=== PATIENT | female | born 1930 | race African-American/Black ===

== ENCOUNTER 2016-07-20 19:58 | Inpatient (IN) | payer OTHER ==
[~2016-07-20] VITALS: Ht 154.9 cm; Wt 50.8 kg
[~2016-07-20 19:58] MED LIST: DILT240C54 PO; GABA-531 PO; LISI5TAB PO; OMEP-130 PO; TRAM50TA2 PO
[2016-07-20 20:00] VITALS: BP 133/64; PULSE 101; RESP 16; TEMP 98.9; O2SAT 94
--- NOTE | 2016-07-20 20:05 | NUR ---
Pt gowned up and placed in bed 5 for evaluation
--- NOTE | 2016-07-20 20:53 | NUR ---
Latrice waldron in [facility] - 07/21/16 at 0200 by [email or web address] at bedside examining pt
--- NOTE | 2016-07-20 20:55 | NUR ---
at bedside examining pt
--- NOTE | 2016-07-20 21:00 | NUR ---
Pt brought to ED via ambulance with c/o bilateral hip, lower back pain 4/10, aggravated with movement. pt stated that she tripped and fell in the abthroom yesterday's evening, was able to get up using the cane. This morning, pt said that her legs felt weak and she could not stand up. BLE sensation intatc, pedal pulses present. Pt A&Ox4, denies SOB or chestpain , denies N/V/D, no bruise or skin opening noted. will continue to monitor
[2016-07-20 21:32] LABS: EOSINOPHILS # (AUTO) 0.1 K/uL (0.0-0.4); LYMPHOCYTES # (AUTO) 1.8 K/uL (1.0-5.5); MEAN CORPUSCULAR HGB CONC 32 % (32-36); RED CELL DISTRIBUTION WIDTH 13.3 % (9.0-15.0); WHITE BLOOD COUNT (AUTO) 7.5 K/uL (4.8-10.8)
[2016-07-20 21:34] LABS: ANION GAP 3 (5-15); CALCIUM 9.1 mg/dL (8.4-11.0); CHLORIDE 104 mmol/L (98-107); CREATININE 1.39 mg/dL (0.55-1.30); GLUCOSE 132 mg/dL (70-99); POTASSIUM 4.4 mmol/L (3.5-5.1); SODIUM SERUM 142 mmol/L (136-145); UREA NITROGEN, BLOOD 28 mg/dL (8-21)
[2016-07-20 21:35] LABS: BASOPHILS # (AUTO) 0.1 K/uL (0.0-0.2); BASOPHILS % (AUTO) 1.9 % (0.0-2.0); EOSINOPHILS % (AUTO) 0.8 % (0.0-4.0); HEMATOCRIT 35.7 % (36-48); HEMOGLOBIN 11.4 g/dL (12.0-16.0); LYMPHOCYTES % (AUTO) 24.5 % (20.5-51.5); MEAN CORPUSCULAR HEMOGLOBIN 27 pg (27-31); MEAN CORPUSCULAR VOLUME 83 fL (79.0-98.0); MONOCYTES # (AUTO) 0.7 K/uL (0.0-1.0); MONOCYTES % (AUTO) 9.5 % (1.7-9.3); NEUTROPHILS # (AUTO) 4.8 K/uL (1.8-7.7); NEUTROPHILS % (AUTO) 63.3 % (40.0-70.0); PLATELET COUNT (AUTO) 168 K/uL (130-430); RED BLOOD CELL COUNT(AUTO) 4.32 MIL/uL (4.2-6.2)
[2016-07-20 21:37] LABS: INR 0.9 (0.8-1.2); PROTHROMBIN TIME 10.3 SECS (9.5-12.5)
[2016-07-20 21:38] LABS: ALANINE AMINOTRANSFERASE 16 U/L (12-78); ALBUMIN 3.1 g/dL (3.4-4.8); ASPARTATE AMINOTRANSFERASE 56 U/L (10-37); TOTAL BILIRUBIN 0.4 mg/dL (0.0-1.0); TOTAL PROTEIN, SERUM 7.1 g/dL (6.4-8.3)
--- NOTE | 2016-07-20 22:00 | NUR ---
Son at bedside, pt denies distress.
[2016-07-20] MEDS ORDERED: MORPHINE 2 MG/ML INJ. SYRINGE IVP ONE (23:00)
[2016-07-20 23:09] LABS: BILIRUBIN,URINE NEGATIVE (NEGATIVE); BLOOD, URINE NEGATIVE (NEGATIVE); CLARITY/URINE CLEAR (CLEAR); COLOR,URINE YELLOW (YELLOW); GLUCOSE,URINE NEGATIVE (NEGATIVE); KETONES,URINE NEGATIVE (NEGATIVE); LEUKOCYTE ESTERASE ,URINE NEGATIVE (NEGATIVE); NITRITE, URINE NEGATIVE (NEGATIVE); PH,URINE 6.5 (5.0-8.0); PROTEIN URINE 1+ (NEGATIVE); UROBILINOGEN,URINE 0.2 (0.2-1.0)
[2016-07-20 23:15] LABS: BACTERIA,URINE FEW /HPF (None Seen); MUCUS,URINE None Seen /LPF (None Seen); RBC,URINE 0-3 /HPF (0-3); URINE AMORPHOUS URATE 1+ /HPF (None Seen); WBC,URINE 0-3 /HPF (0-3)
--- NOTE | 2016-07-20 23:15 | NUR ---
Pt stated her pain is controlled after receiving morphine, VSS, pt in comfortable position
[2016-07-21] VITALS (8 sets, daily range): BP systolic 104–151; BP diastolic 52–82; PULSE 94–100; RESP 16–20; TEMP 98–99.2; O2SAT 88–99
--- NOTE | 2016-07-21 00:05 | NUR ---
Pt in bed appeared resting comfortably
--- NOTE | 2016-07-21 00:59 | NUR ---
ADMISSION NOTE Received patient from ER via [facility], received report from JAMES HENRY. Patient admitted with diagnosis of LOW BACK PAIN. Patient oriented to hospital routine, call light, toileting and safety-patient verbalized understanding.
[2016-07-21] MEDS ORDERED: MORPHINE 2 MG/ML INJ. SYRINGE IVP PRN ×2 (01:00→05:15)
--- NOTE | 2016-07-21 01:00 | NUR ---
Patient will be admitted to care of . Admitted to med-surg unit. Will go to room 105B. Belongings list completed. Summary report printed. Report given to kat villalobos
--- NOTE | 2016-07-21 01:30 | NUR ---
Initial Notes Patient resting in bed, awake, alert, oriented. Patient denies any acute distress. Patient reports some low back pain but states she was medicated in ER and it helps, does not want additional pain medication at this time. Breathing even and unlabored on room air. Vital signs stable. IV site patent/clean/dry. Educated patient on use of call light for assistance and fall precautions, patient verbalized understanding. Needs addressed, call light in hand. Will continue to monitor for changes and safety. Addendum: 07/21/16 at 0158 by Zuhair Valle RN Skin intact. Skin color discoloration noted around patient's rectum.
--- NOTE | 2016-07-21 04:00 | NUR ---
Rounds Patient resting in bed with eyes closed, easily aroused. Patient denies any distress, pain, or needs at this time. Call light in hand, fall precautions in place. Will continue to monitor.
[2016-07-21] MEDS ORDERED: MORPHINE 4 MG/ML INJ. SYRINGE IVP PRN (05:15)
--- NOTE | 2016-07-21 06:24 | NUR ---
Closing Notes Patient resting in bed with eyes closed, easily aroused to name. Patient denies any acute distress or pain at this time. Breathing even and unlabored. IV site patent/clean/dry, no S/S infection/infiltration noted. Needs addressed throughout shift. Call light in hand, fall precautions in place. Will continue to monitor for changes and safety, and endorse all patient care/needs to oncoming nurse.
--- NOTE | 2016-07-21 07:18 | NUR ---
Handoff report at patient bedside. Resting at this time. Chief complaint is mechanical fall in home with negative CT L-spine.
--- NOTE | 2016-07-21 09:00 | NUR ---
DOCTOR JANDIAL ROUNDS TO PATIENT. RECHECK OF OXYGEN SATURATION. PATIENT HAD ACRYLIC NAILS. ADJUSTED OXYGEN SATURATION MONITOR TO NON AFFECTED SITE.
[2016-07-21] MEDS: GABAPENTIN 300 MG CAPSULE PO SCH ×3 (09:34→21:50)
[2016-07-21] MEDS: DILTIAZEM HCL 240 MG CAP.SR.24H PO SCH (09:36)
--- NOTE | 2016-07-21 10:25 | NUR ---
CONSULTATION CALLED: REASON FOR CONSULTATION: LOWER BACK PAIN WAS CONSULT CALLED: YES PERSON WHO WAS NOTIFIED: [facility] PH[facility]ICIAN: ANTONIA LAMB
[2016-07-21 10:47] LABS: ANION GAP 3 (5-15); CALCIUM 9.4 mg/dL (8.4-11.0); CHLORIDE 104 mmol/L (98-107); CREATININE 0.98 mg/dL (0.55-1.30); GLUCOSE 104 mg/dL (70-99); POTASSIUM 3.8 mmol/L (3.5-5.1); SODIUM SERUM 146 mmol/L (136-145); UREA NITROGEN, BLOOD 18 mg/dL (8-21)
[2016-07-21 10:54] LABS: CREATINE KINASE, TOTAL 430 U/L (26-192)
[2016-07-21] MEDS ORDERED: OMEPRAZOLE 20 MG CAPSULE.DR (PriLOSEC) PO ONE (11:00)
--- NOTE | 2016-07-21 11:00 | NUR ---
ROUNDS TO PATIENT. NEEDS MET AT THIS TIME.
[2016-07-21 11:16] LABS: CKMB RELATIVE INDEX 0.1 (0.0-2.9); CREATINE KINASE MB 0.3 ng/mL (0-3.6)
--- NOTE | 2016-07-21 12:23 | NUR ---
HCP/PA: Called [facility] made her aware of discharge to SNF. Kirstin stated [facility] accepted assigned to room 207A RN to report . [facility] ambulance transport on will call.
--- NOTE | 2016-07-21 13:00 | NUR ---
COMPLETION OF MRI AT THIS TIME. NEEDS MET. SAYS SHE WANTS TO CHANGE BRIEF. HAS ORDERS FOR FURTHER TRANSFER PENDING RESULTS OF MRI AND CLEARANCE. NOTIFIED [facility] DIRECTOR OF PATIENT REQUEST TO CHANGE.
--- NOTE | 2016-07-21 15:00 | NUR ---
ROUNDS TO PATIENT. NEEDS MET AT THIS TIME.
--- NOTE | 2016-07-21 17:09 | NUR ---
NOTED CARE AMBULANCE NOTIFICATION. WILL PREPARE DISCHARGE AND REPORT.
--- NOTE | 2016-07-21 17:49 | NUR ---
CALLED REPORT TO [facility]. REQUESTED CLEARANCE FROM DOCTOR ADONIS. LEFT MESSAGE WITH ANSWERING SERVICE.
--- NOTE | 2016-07-21 19:33 | NUR ---
Handoff report to noc nurse. Patient is a hold for discharge at this time by Doctor
--- NOTE | 2016-07-21 20:00 | NUR ---
initial nursing notes: Patient is awake. Patient eating dinner. Patient demonstrate proper use of call light. Per Dr. Gallegos, patient cannot be transferred at this time due to BLE weakness.
--- NOTE | 2016-07-21 21:43 | NUR ---
Came back fromCT: Patient had just come back from brain CT without contrast.
[2016-07-21] MEDS: OMEPRAZOLE 20 MG CAPSULE.DR (PriLOSEC) PO SCH (21:52)
--- NOTE | 2016-07-21 23:40 | NUR ---
nursing rounds: Patient is asleep in bed. No shortness of breath noted.
[2016-07-22 00:57] VITALS: BP 162/91; PULSE 98; RESP 17; TEMP 96.7; O2SAT 98
--- NOTE | 2016-07-22 01:40 | NUR ---
nursing rounds: Patient calmly resting in bed. No respiratory distress noted.
--- NOTE | 2016-07-22 03:40 | NUR ---
nursing rounds: Patient is asleep in bed. Patient has no shortness of breath.
[2016-07-22 04:00] VITALS: BP 138/68; PULSE 64; RESP 16; TEMP 98.6; O2SAT 98
--- NOTE | 2016-07-22 05:40 | NUR ---
nursing rounds: Patient is awake. Patient's bed linen were changed. Patient denies of having pain.
--- NOTE | 2016-07-22 07:27 | NUR ---
closing nursing notes: Patient is resting in bed. Patient is awake, alert and oriented X 4. Patient is in no acute respiratory distress. No episodes of fall and no injuries throughout the rn shift mgr. Provided nursing report to incoming morning shift nurse, CARL Walls, at patient's bedside.
[2016-07-22 08:05] VITALS: BP 153/84; PULSE 95; RESP 16; TEMP 97
--- NOTE | 2016-07-22 09:02 | NUR ---
[facility] nurse unit says 207A is occupied. Call back after 10am for admission coordinator.
--- NOTE | 2016-07-22 09:23 | NUR ---
Nutrition Update Randall Scale 18 noted. Pt admitted for lower back pain. Diet: regular BMI: 21.2 kg/m2 RD to follow per nutrition care standards.
[2016-07-22] MEDS: GABAPENTIN 300 MG CAPSULE PO SCH (09:25)
[2016-07-22] MEDS: OMEPRAZOLE 20 MG CAPSULE.DR (PriLOSEC) PO SCH (09:25)
[2016-07-22] MEDS: DILTIAZEM HCL 240 MG CAP.SR.24H PO SCH (09:25)
[2016-07-22 12:01] VITALS: BP 146/96; PULSE 94; RESP 18; TEMP 98.8; O2SAT 95
--- NOTE | 2016-07-22 12:21 | NUR ---
Per Hetal WALKER, patient will return to room 207A. Medic one will picker machine operator at 2 pm. Will notify facility for any additional report needs.
--- NOTE | 2016-07-22 12:51 | NUR ---
family member aware of pt's discharge son hemanth aware of pt's discharge to [facility]. granddaughter didn't sheepskin pickler the phone and left message.
--- NOTE | 2016-07-22 14:23 | NUR ---
D/C Patient Patient given medication reconciliation form and D/C instructions. Exit Care provided. Patient verbalized understanding. MD discussed with patient the results and treatment provided. Not ambulatory for discharge to SNF. Patient in stable condition, ID band removed. IV catheter removed, intact and dressing applied, no active bleeding. No Rx given. Patient educated on pain management. All belongings sent with patient.
== END 2016-07-22 14:15 | DRG 552 ==
LOC: SED 19:58 → SMU 07-21 00:48
PROVIDERS: ADMIT Internal Medicine Hospice and Palliative Medicine; ATTEND Internal Medicine Hospice and Palliative Medicine
DX: M51.36 Other intervertebral disc degeneration, lumbar region (principal); I10 Essential (primary) hypertension; M48.06 Spinal stenosis, lumbar region; R53.1 Weakness; Z79.899 Other long term (current) drug therapy
CPT/HCPCS: 36415; 70450-TC; 71010; 72131; 72148; 80048; 80053; 81000-TC; 82550-TC; 82553-TC; 83880; 84484; 85025; 85610-TC; 85730-TC; 93005; 96374; 99285; J2270; J7030